=== PATIENT | female | born 1980 | race Native Hawaiian/Other Pacific Islander ===

== ENCOUNTER 2021-10-23 15:22 | Outpatient (CLI) | payer BC | END 2021-10-23 19:52 | disposition home or self-care (01) | LOC: MAMMO 15:22 | PROVIDERS: ATTEND Obstetrics & Gynecology | DX: Z12.31 Encounter for screening mammogram for malignant neoplasm of breast (principal) ==

== ENCOUNTER 2022-11-05 15:15 | Outpatient (CLI) | payer BC | END 2022-11-05 20:52 | disposition home or self-care (01) | LOC: MAMMO 15:15 | PROVIDERS: ATTEND Obstetrics & Gynecology | DX: Z12.31 Encounter for screening mammogram for malignant neoplasm of breast (principal) ==